=== PATIENT | female | born 1945 | race Caucasian/White ===

== ENCOUNTER 2021-06-22 16:24 | Inpatient (IN) | payer MEDICARE ==
[~2021-06-22] VITALS: Ht 121.9 cm; Wt 73.9 kg
[2021-06-22 16:25] VITALS: BP 125/55
[2021-06-22 16:47] LABS: ABSOLUTE NEUTROPHILS 6.8 thou/uL (1.4-8.2); BASOPHILS 1.1 % (0.0-2.0); EOSINOPHILS 0.1 % (0.0-3.0); HEMATOCRIT 38.8 % (37.0-47.0); HEMOGLOBIN 12.9 gm/dL (12.0-15.0); LYMPHOCYTES 8.7 % (24.0-44.0); MCH 30.9 pg (26.0-34.0); MCHC 33.2 g/dL (28.0-37.0); MCV 92.9 fL (80.0-100.0); MONOCYTES 6.8 % (1.0-8.0); PLATELET COUNT 420 thou/uL (150-400); POLYS 83.3 % (36.0-66.0); RBC 4.18 mil/uL (4.20-5.00); RDW 13.7 % (10.5-14.5); WBC 8.1 thou/uL (4.0-11.0)
[2021-06-22 17:23] LABS: ALBUMIN 2.2 g/dL (3.4-5.0); CALCIUM 9.6 mg/dL (8.5-10.1); CREATININE 1.1 mg/dL (0.6-1.0); POTASSIUM 3.8 mmol/L (3.5-5.1); TOTAL BILIRUBIN 0.5 mg/dL (0.2-1.0); TOTAL PROTEIN 7.3 g/dL (6.4-8.2)
[2021-06-23 03:15] LABS: HEMATOCRIT 35.2 % (37.0-47.0); HEMOGLOBIN 11.9 gm/dL (12.0-15.0); MCH 31.3 pg (26.0-34.0); MCHC 33.8 g/dL (28.0-37.0); MCV 92.7 fL (80.0-100.0); RBC 3.79 mil/uL (4.20-5.00); RDW 13.5 % (10.5-14.5); WBC 7.4 thou/uL (4.0-11.0)
[2021-06-23 03:54] LABS: ALBUMIN 1.9 g/dL (3.4-5.0); CALCIUM 8.6 mg/dL (8.5-10.1); POTASSIUM 3.6 mmol/L (3.5-5.1); TOTAL BILIRUBIN 0.4 mg/dL (0.2-1.0); TOTAL PROTEIN 6.7 g/dL (6.4-8.2)
[2021-06-23 05:43] VITALS: BP 141/81
--- NOTE | 2021-06-23 06:23 | NUR ---
PT'S DAUGHTER, RACQUEL [phone]
--- NOTE | 2021-06-23 06:30 | NUR ---
NOTFIED PT'S DTR OF POSITIVE COVID RESULTS. QUESTIONS, POC AND VISITATION POLICY DISCUSSED.
[2021-06-23 06:42] VITALS: BP 120/67
--- NOTE | 2021-06-23 06:50 | EKG ---
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 06/23/21 0650 [id number] Jm Cardenas MD, FACC /EPI
--- NOTE | 2021-06-23 07:38 | NUR ---
ADMIT PT ADMITTED TO ROOM 364 FROM ED WITH COVID PNEUMONIA. A/O X4, PECHANGA. VSS. ORIENTED TO ROOM CALL LIGHT SYSTEM, AND POC. EDUCATED PT ON FALL RISK AND BAND AND YELLOW SOCKS PROVIDED. BED ALARM IN PLACE PT AGREES TO CALL FOR ASSISTANCE. O2 AT 6 LITERS SATS HOVERING AT 90 -91%. LUNGS COARSE. DENIES PAIN. IV TO LAC WITH NS@75CC/HR. AM MEDS GIVEN WITH WATER NO DIFFICULTY SWALLOWING. ADMISSION ASSESSMENT AND QUESTIONAIRE COMPLETED. CONTINUE POC.
[2021-06-23] MEDS ORDERED: ALENDRONATE SOD70 MG PO (07:39)
[2021-06-23] MEDS ORDERED: HYDROCHLOROTHIA25 M1 PO (07:39)
[2021-06-23] MEDS ORDERED: LEVOTHYROXINE150 MCG PO (07:40)
[2021-06-23] MEDS ORDERED: METOPROLOL SUCC25 M1 PO (07:40)
[2021-06-23] MEDS ORDERED: VALSARTAN320 MG PO (07:41)
[2021-06-23] MEDS ORDERED: EZETIMIBE10 MG PO (07:41)
[2021-06-23] MEDS ORDERED: COLESTIPOL HCL1 G1 PO (07:42)
--- NOTE | 2021-06-23 09:13 | NUR ---
Consulted r/t poor intake: Pt noted admitted from urgent care with prolonged cough, 2-4 wks; O2 sats 85% on RA at Urgent care. PMH: HTN, HLD, hypothyroidism. noted recently 06/12 following MS. Pt reports not eating or sleeping well since. Covid+. On heart healthy diet with no intakes documented yet. Pt reports some pain in abdomen, but arun it to hunger pains. Start Ensure Enlive daily until intake trends can be monitored. BMI 47, extreme class III obesity. Low nutrition risk with supplement initiated.
--- NOTE | 2021-06-23 13:22 | NUR ---
CARE ASSUMED THIS AM, PT ALERT AND ORIENTED X4, DENIES ANY CHEST PAIN, NAUSEA AND VOMITTING. ON 6L OF OXYGEN, SOB WITH EXERTION. PT UP TO BSC WITH 1 ASSIST. DAUGHTER CALLED AND UPDATED. UP IN CHAIR, WILL CONTINUE TO MONITOR
[2021-06-23 15:26] VITALS: BP 127/91
[2021-06-23 19:46] VITALS: BP 155/83
[2021-06-24 04:44] VITALS: BP 151/90
--- NOTE | 2021-06-24 05:12 | NUR ---
PT MAKING SLOW PROGRESS TOWARDS GOALS. ON O2 AT 6L PER NC. LUNGS DIMINSHED WITH CRACKLES IN BOTH BASES.
[2021-06-24 07:59] VITALS: BP 148/80
--- NOTE | 2021-06-24 08:46 | HC ---
[facility] [place] [address] CONSULTATION Name: EZEKIEL OROURKE Room #: 364-P ADM IN M.R.#: [id number] Admission: 06/22/21 Attend Phys: Jose Saldivar MD Discharge: Date of : 49 Report #: [id number] THIS REPORT FOR: cc: Caren Palomares MD, Laura A. MD Barry, Joseph W. MD ~ DATE OF SERVICE: 06/23/2021 INFECTIOUS DISEASE CONSULTATION ATTENDING PHYSICIAN: Dr. Saldivar. REASON FOR EVALUATION: COVID-19 infection, complicated by pneumonitis and respiratory failure. HISTORY OF PRESENT ILLNESS: Chart reviewed, the patient examined. This is a 75-year-old woman with history of hypertension, hypothyroidism, who has been ill for the last 3 weeks, had been evaluated and was found to have saturations in the 80s. Subsequently, developed some cough and somewhat productive GI related complaints with anorexia, diarrhea that subsequently resolved, notes she has been under increasing stress as well. Her was passed. It is not clear that she has had any fevers. Initial evaluation: Chest x-ray showed bilateral diffuse interstitial infiltrates. Initial coronavirus testing was negative; however, followup PCR was positive. Lactic acid 1.5. Electrolytes otherwise unremarkable. Albumin of 2.2. Procalcitonin less than 0.05. Initiated on therapy with azithromycin, ceftriaxone, dexamethasone. ALLERGIES: PENICILLIN, WHICH CAUSES A RASH. CURRENT MEDICATIONS: Include ezetimibe, enoxaparin, ceftriaxone, famotidine, metoprolol, dexamethasone, levothyroxine, hydrochlorothiazide, p.r.n. analgesics, antiemetics, azithromycin. PAST MEDICAL HISTORY: Hypertension, hypothyroidism, hyperlipidemia. SOCIAL HISTORY: Former smoker, past ethanol, no illicit drug use. FAMILY HISTORY: Noncontributory. REVIEW OF SYSTEMS: Otherwise, unremarkable with the exception of the above. PHYSICAL EXAMINATION: GENERAL: Alert, cooperative, mild to moderate distress. She is generally lucid, appears somewhat ill, not overtly toxic. VITAL SIGNS: Temperature 96, pulse 85, respirations 20, blood pressure 120/67. SKIN: Warm, dry, no rashes. [address] [address] CONSULTATION Name: EZEKIEL OROURKE Room #: 364-P [facility] IN .R.#: [id number] Admission: 06/22/21 Attend Phys: Jose Saldivar MD Discharge: Date of : 49 Report #: [id number] HEENT: Normocephalic. Extraocular muscles intact. Nasal cannula in place. NECK: Supple. LUNGS: Few scattered crackles at the bases. HEART: Regular. I do not appreciate a murmur. ABDOMEN: Slightly distended, mildly firm, nontender. No peritoneal signs. GENITOURINARY AND RECTAL: Deferred. LABORATORY DATA: Recent CBC: White count 7.4, H and H 9.9 and 35.2, platelets of 403. Electrolytes: Sodium 143, potassium 3.6, chloride 105, bicarbonate is 25, anion gap of 13, BUN and creatinine 29 and 1.0. LFTs unremarkable. Albumin 1.9. Estimated GFR of 54. ASSESSMENT AND PLAN: COVID-19 infection, complicated by pneumonitis and respiratory failure in the setting of hypertension, hypothyroidism. We will continue empiric antimicrobial therapy, add remdesivir to the regimen directed against the coronavirus. In addition to the dexamethasone, we will add vitamins as well. At this point, she is not overtly ill. Ideally, we will do reverse her course. Continue supportive therapy. Monitor oxygen levels and adjust as needed. <ELECTRONICALLY SIGNED> By: Brijesh Rivera MD 06/24/21 0846 [id number] Brijesh Rivera MD /nt
[2021-06-24 09:54] LABS: ABSOLUTE NEUTROPHILS 7.5 thou/uL (1.4-8.2); BASOPHILS 0.3 % (0.0-2.0); EOSINOPHILS 0.4 % (0.0-3.0); HEMATOCRIT 36.9 % (37.0-47.0); LYMPHOCYTES 13.7 % (24.0-44.0); MCH 30.5 pg (26.0-34.0); MCHC 32.7 g/dL (28.0-37.0); MCV 93.4 fL (80.0-100.0); MONOCYTES 8.1 % (1.0-8.0); PLATELET COUNT 426 thou/uL (150-400); POLYS 77.5 % (36.0-66.0); RBC 3.95 mil/uL (4.20-5.00); WBC 9.7 thou/uL (4.0-11.0)
[2021-06-24 10:13] LABS: ALBUMIN 2.1 g/dL (3.4-5.0); ANION GAP 13 mmol/L (7-16); BUN 19 mg/dL (7-18); CALCIUM 8.7 mg/dL (8.5-10.1); CHLORIDE 107 mmol/L (98-107); CO2 25 mmol/L (21-32); DIRECT BILIRUBIN < 0.1 mg/dL (<0.1-0.2); GLUCOSE 124 mg/dL (74-106); PHOSPHORUS 2.2 mg/dL (2.5-4.9); POTASSIUM 3.2 mmol/L (3.5-5.1); SGOT 32 U/L (15-37); SGPT 37 U/L (30-65); SODIUM 145 mmol/L (136-145); TOTAL BILIRUBIN 0.3 mg/dL (0.2-1.0)
--- NOTE | 2021-06-24 12:48 | NUR ---
INITIAL ASSESSMENT: AMBAR reviewed chart and spoke with nursing and attending physician. Pt was admitted from home due to pneumonia. Pt placed in Enhanced Isolation due to having positive COVID test. Pt did not receive a COVID vaccine. AMBAR spoke with pt via phone. Introduced role of SW. Pt is alert/orientated x 4. Pt reports she lives at home. Pt's spouse recently . Prior to admission, pt was independent with ADLs. No use of DME. No hx of HH services or post-acute placement. Pt's PCP is Dr. Caren Palomares. AMBAR discussed possible discharge needs pending therapy evals. Pt is agreeable with HH and Home O2 if needed. SW discussed options. No preference of providers. AMBAR confirmed pt's home address and phone number. PT/OT ordered today to evaluate pt for discharge needs. AMBAR faxed HH referral to [facility] . Notified liaison of new referral. Pt will need a rest/exercise oximetry completed prior to discharge to determine home O2 needs. AMBAR faxed home O2 referral to [facility]. Notified [facility] liaison. Unsure if pt will be ready for discharge over the weekend. Pt is on 6L of O2. Pt is currently on IV abx, IV steroids and Remdesivir. AMBAR spoke with pt's dtr, Helen, via phone to provide update and discuss possible discharge needs. Helen verbalized understanding. Will need discharge ppwk faxed to and rest/exercise oximetry results and script faxed to [facility] if pt is discharged home over the weekend. Contact info for and [facility] will need to be placed in pt's discharge summary. AMBAR is following to assist as needed with discharge planning. [facility] -- [facility]--
[2021-06-24 15:41] VITALS: BP 94/68
--- NOTE | 2021-06-24 18:31 | NUR ---
ASSUMED PATIENT CARE AT 0700. A/O X4. UP AD AURELIA. TITRATED 02 TO 2L/NC. PROGRESSING TOWARDS POC GOALS.
[2021-06-24 19:25] VITALS: BP 153/76
[2021-06-25 04:40] VITALS: BP 150/75
[2021-06-25 05:27] LABS: ALBUMIN 1.9 g/dL (3.4-5.0); ANION GAP 9 mmol/L (7-16); BUN 25 mg/dL (7-18); CALCIUM 8.3 mg/dL (8.5-10.1); CHLORIDE 112 mmol/L (98-107); CO2 25 mmol/L (21-32); CREATININE 0.8 mg/dL (0.6-1.0); DIRECT BILIRUBIN < 0.1 mg/dL (<0.1-0.2); GLUCOSE 107 mg/dL (74-106); PHOSPHORUS 3.3 mg/dL (2.6-4.7); SGOT 38 U/L (15-37); SGPT 42 U/L (14-59); SODIUM 146 mmol/L (136-145); TOTAL BILIRUBIN 0.2 mg/dL (0.2-1.0); TOTAL PROTEIN 6.1 g/dL (6.4-8.2)
--- NOTE | 2021-06-25 05:36 | NUR ---
Pt. stated she slept fair during the night.O2 at 2L/Nc at beginning of shift then RT titrated to 3L/NC around 0100. This am her O2 sat is 88% on 3L. O2 titrated up to 4L/NC with o2 sat in the low 90's. She has been using her IS. Cont. on enhanced precaution , afebrile.
[2021-06-25 07:54] VITALS: BP 163/71
--- NOTE | 2021-06-25 12:09 | NUR ---
NO OT INDICATED FOR THIS PATIENT AFTER DISCUSSING ON THIS DAY WITH PT. PT UP ADLIB IN ROOM FOR ALL ACTIVITIES AND FULLY I PRIOR TO ADMISSION. NO SKILLED OT.
[2021-06-25 15:39] VITALS: BP 170/89
--- NOTE | 2021-06-25 17:54 | NUR ---
ASSUMED PATIENT CARE AT 0700. A/O X4. TITRATED TO 4L/NC. DENIES PAIN. AMBULATED IN ROOM. PROGRESSING TOWARDS POC GOALS.
[2021-06-25 20:36] VITALS: BP 165/73
[2021-06-25 22:27] VITALS: BP 150/99
--- NOTE | 2021-06-25 22:52 | NUR ---
PT ALERT AND ORIENTED X4. VSS AFEBRILE. UNLABORED PRESENTLY ON 4LNC. IV ABX INFUSING. PT RESTING QUIETLY. NO C/O PAIN. BED DOWN CALL LIGHT IN REACH. BED ALARM IS ON.
[2021-06-26 03:24] VITALS: BP 143/66
[2021-06-26 04:15] LABS: ANION GAP 12 mmol/L (7-16); BUN 22 mg/dL (7-18); CALCIUM 8.2 mg/dL (8.5-10.1); CHLORIDE 111 mmol/L (98-107); CO2 24 mmol/L (21-32); CREATININE 0.8 mg/dL (0.6-1.0); DIRECT BILIRUBIN < 0.1 mg/dL (<0.1-0.2); GLUCOSE 105 mg/dL (74-106); PHOSPHORUS 3.1 mg/dL (2.6-4.7); POTASSIUM 3.7 mmol/L (3.5-5.1); SGOT 36 U/L (15-37); SGPT 46 U/L (14-59); SODIUM 147 mmol/L (136-145); TOTAL BILIRUBIN 0.3 mg/dL (0.2-1.0)
[2021-06-26 04:39] LABS: HEMATOCRIT 34.4 % (37.0-47.0); HEMOGLOBIN 11.4 gm/dL (12.0-15.0); MCH 30.9 pg (26.0-34.0); MCHC 33.1 g/dL (28.0-37.0); MCV 93.5 fL (80.0-100.0); RBC 3.69 mil/uL (4.20-5.00); RDW 13.9 % (10.5-14.5); WBC 9.1 thou/uL (4.0-11.0)
[2021-06-26 07:23] VITALS: BP 146/74
--- NOTE | 2021-06-26 08:21 | NUR ---
PT PROGRESSING TOWARDS D/C GOALS. VSS. UNLABOREDON 4LNC OVERNIGHT. NO C/O. NO S/S DISTRESS.
[2021-06-26 15:07] VITALS: BP 129/61
--- NOTE | 2021-06-26 18:40 | NUR ---
TITRATED 02 TO 2L/NC. AMBULATED IN ROOM. PROGRESSING TOWARDS POC GOALS.
[2021-06-26 19:14] VITALS: BP 142/73
--- NOTE | 2021-06-26 21:26 | NUR ---
PT ALERT AND ORIENTED X4. VSS AFEBRILE. NO C/O PAIN OR SOA. NO S/S DISTRESS ON 2.5LNC. LUNG SOUND DIMINISHED MILLIE. ENC T,C&DB. PT AMBULATES IN THE ROOM INDEPENDENTLY. PT PROGRESSING WELL TOWARDS D/C GOALS.
[2021-06-27 03:12] VITALS: BP 104/86
[2021-06-27 04:55] LABS: HEMATOCRIT 34.2 % (37.0-47.0); HEMOGLOBIN 11.8 gm/dL (12.0-15.0); MCH 32.1 pg (26.0-34.0); MCHC 34.7 g/dL (28.0-37.0); MCV 92.6 fL (80.0-100.0); RBC 3.69 mil/uL (4.20-5.00); RDW 13.9 % (10.5-14.5); WBC 9.7 thou/uL (4.0-11.0)
--- NOTE | 2021-06-27 05:03 | NUR ---
PT PROGRESSING TOWARDS D/C GOALS. VSS AFEBRILE. LUNGS SOUNDED CLEAR AND SLIGHTY DIMINISHED THIS AM. UNLABORED ON 2LNC. NO C/O PAIN. NO S/S DISRESS.
[2021-06-27 05:20] LABS: ALBUMIN 2.1 g/dL (3.4-5.0); ANION GAP 10 mmol/L (7-16); BUN 20 mg/dL (7-18); CALCIUM 8.6 mg/dL (8.5-10.1); CHLORIDE 109 mmol/L (98-107); CO2 26 mmol/L (21-32); CREATININE 0.8 mg/dL (0.6-1.0); DIRECT BILIRUBIN < 0.1 mg/dL (<0.1-0.2); GLUCOSE 101 mg/dL (74-106); PHOSPHORUS 4.2 mg/dL (2.6-4.7); SGOT 78 U/L (15-37); SGPT 82 U/L (14-59); SODIUM 145 mmol/L (136-145); TOTAL BILIRUBIN 0.3 mg/dL (0.2-1.0); TOTAL PROTEIN 6.2 g/dL (6.4-8.2)
[2021-06-27 08:05] VITALS: BP 153/81
--- NOTE | 2021-06-27 13:07 | NUR ---
SW reviewed chart and spoke with nursing and attending physician. Pt remains in Enhanced Isolation due to COVID. Pt is afebrile and on 3.5L of O2. Pt is on IV steroids and Remdesivir. Discharge home is anticipated in 1-2 days. [facility] is able to provide HH services and [facility] is able to provide home O2 if needed. SW spoke with pt via phone to discuss discharge plan. Pt is aware and in agreement with discharge plan. SW discussed possible need for HH and Home O2. Pt verbalized understanding. Pt's dtr will be able to provide transportation home when discharged. SW updated and [facility] liaisons. SW is following to assist as needed with discharge planning.
[2021-06-27 15:45] VITALS: BP 137/67
--- NOTE | 2021-06-27 18:36 | NUR ---
ASSUMED PATIENT CARE AT 0700 . A/O X4 ON 3L/NC. AMBULATED IN ROOM. PROGRESSING TOWARDS POC GOALS.
[2021-06-27 20:37] VITALS: BP 158/93
--- NOTE | 2021-06-27 22:27 | NUR ---
PT ALERT AND ORIENTED X4. VSS AFEBRILE, NO S/S DISTRESS ON 3LNC. DENIED PAIN. HRR. PT EXCITED TO BE GOING HOME POSSIBLY TOMORROW.
[2021-06-28 03:47] VITALS: BP 126/58
--- NOTE | 2021-06-28 04:31 | NUR ---
PT PROGRESSING TOWARDS D/C GOALS. SHE STATED SHE IS READY TO GO HOME AND NEEDS TO GET SOME UNDISTURBED SLEEP. VSS AFEBRILE. UNLABORED ON 3LNC. LEFT NOTE ON DOOR FOR STAFF NOT TO DISTURB UNTIL 8 AM PER PT REQUEST SO SHE CAN GET SOME SLEEP.
[2021-06-28 09:09] VITALS: BP 143/78
[2021-06-28 10:58] VITALS: BP 145/78
--- NOTE | 2021-06-28 14:06 | NUR ---
PT A/O X 4, STEADY GAIT WITH AMBULATION. ASSESSMENTS PER CHART. DENIES PAIN OR SOB WITH ACTIVITY. PT STILL ON 2L NC WITH REST TO MAINTAIN O2 SAT ABOVE 90%, 3L WITH ACTIVITY PER RT. PLAN TO DC HOME TODAY . PT STATES SHE IS READY TO BE HOME AND GET THINGS DONE THERE. ENCOURAGED REST AT HOME WELL. WILL CONT TO MONITOR AND FOLLOW POC.
--- NOTE | 2021-06-28 14:19 | NUR ---
DISCHARGE NOTE: AMBAR reviewed chart and spoke with nursing and attending physician. Pt remains in Enhanced Isolation due to COVID. Pt is afebrile and on 3L of O2. Pt is medically stable for discharge home today with HH and Home O2. Rest/exercise oximetry ordered. AMBAR spoke with pt via phone to discuss discharge plan. Pt is aware and in agreement with plan. Pt requested SW call her dtr, Helen, to review the discharge plan. AMBAR spoke with Helen via phone. Helen verbalized understanding and will be able to transport pt home when discharged. Contact info for [facility] and [facility] placed in pt's discharge summary. AMBAR notified HH and [facility] liaisons of pt's discharge. Awaiting rest/exercise oximetry to be completed. Will need script and discharge ppwk completed. AMBAR is following to finalize discharge.
[2021-06-28] MEDS ORDERED: PREDNISONE 10 M10 M1 PO (14:27)
[2021-06-28] MEDS ORDERED: OXYGEN MISCELL ×2 (14:52)
== END 2021-06-28 15:44 | disposition home health service (06) | DRG 177 ==
LOC: ER 16:24 → EROBS 19:13 → 3W 19:13
PROVIDERS: Nurse Practitioner Family; Specialist; Student in an Organized Health Care Education/Training Program; ADMIT Hospitalist; ATTEND Hospitalist
PROC: XW033E5 Introduction of Remdesivir Anti-infective into Peripheral Vein, Percutaneous Approach, New Technology Group 5 (ICD-10-PCS; principal; 2021-06-23)
DX: U07.1 COVID-19 (principal); J96.01 Acute respiratory failure with hypoxia; J12.82 Pneumonia due to coronavirus disease 2019; E46 Unspecified protein-calorie malnutrition; Z68.42 Body mass index [BMI] 45.0-49.9, adult; E03.9 Hypothyroidism, unspecified; E78.5 Hyperlipidemia, unspecified; I10 Essential (primary) hypertension; Z87.891 Personal history of nicotine dependence; Z79.899 Other long term (current) drug therapy; Z88.0 Allergy status to penicillin
CPT/HCPCS: 10879